=== PATIENT | female | born 1980 | race African-American/Black ===

== ENCOUNTER 2016-04-23 09:30 | Observation (INO) | payer OTHER ==
[~2016-04-23 09:30] MED LIST: PREN1TAB80 PO; PRENATAL
[2016-04-23 09:58] VITALS: BP 105/58
== END 2016-04-23 11:55 | disposition home or self-care (01) ==
LOC: 4S 09:30
PROVIDERS: ADMIT Specialist; ATTEND Specialist
DX: O40.3XX0 Polyhydramnios, third trimester, not applicable or unspecified (principal); O99.013 Anemia complicating pregnancy, third trimester; Z3A.34 34 weeks gestation of pregnancy
CPT/HCPCS: 59025; 76801; 76817; G0378

== ENCOUNTER 2016-05-10 09:45 | Observation (INO) | payer OTHER ==
[~2016-05-10] VITALS: Ht 172.7 cm; Wt 87.1 kg
== END 2016-05-10 11:05 | disposition home or self-care (01) ==
LOC: 4S 09:45
PROVIDERS: ADMIT Obstetrics & Gynecology Gynecology; ATTEND Obstetrics & Gynecology Gynecology
DX: O99.013 Anemia complicating pregnancy, third trimester (principal); Z3A.35 35 weeks gestation of pregnancy
CPT/HCPCS: 59025; G0378

== ENCOUNTER 2016-06-03 13:34 | Inpatient (IN) | payer OTHER ==
[~2016-06-03] VITALS: Ht 175.3 cm; Wt 87.5 kg
[2016-06-03 14:07] VITALS: BP 114/63
[2016-06-03] MEDS ORDERED: RINGERS SOLUTION,LACTATED 1,000 ML IV SCH (14:17)
[2016-06-03] MEDS ORDERED: RINGERS SOLUTION,LACTATED 1,000 ML IV PRN (14:17)
[2016-06-03] MEDS ORDERED: CITRIC ACID/SODIUM CITRATE 30 ML SOLUTION UDCUP PO PRN (14:30)
[2016-06-03] MEDS ORDERED: METOCLOPRAMIDE HCL 5 MG/ML 2 ML VIAL IVP PRN (14:30)
[2016-06-03 14:48] LABS: BASOPHILS % (AUTO) 0.4 % (0.0-2.0); EOSINOPHILS % (AUTO) 0.5 % (1.0-6.0); HEMATOCRIT 32.3 % (36-46); HEMOGLOBIN 10.1 g/dL (12.0-16.0); LYMPHOCYTES # (AUTO) 1.5 K/uL (1.0-4.8); LYMPHOCYTES % (AUTO) 21.2 % (22.0-44.0); MEAN CORPUSCULAR HEMOGLOBIN 23.6 pg (26.0-34.0); MEAN CORPUSCULAR HGB CONC 31.4 G/dL (31.0-37.0); MEAN CORPUSCULAR VOLUME 75 fL (80-100); MONOCYTES % (AUTO) 14.1 % (2.0-9.0); NEUTROPHILS # (AUTO) 4.5 K/uL (1.8-7.7); NEUTROPHILS % (AUTO) 63.8 % (40.0-70.0); RED BLOOD CELL COUNT(AUTO) 4.29 MIL/uL (4.00-5.20); RED CELL DISTRIBUTION WIDTH 22.2 % (11.5-14.5); WHITE BLOOD COUNT (AUTO) 7.1 K/uL (4.5-11.0)
[2016-06-03 15:19] LABS: RBC MORPHOLOGY COMMENT ABNORMAL RBC MORPH
[2016-06-03] MEDS ORDERED: OXYTOCIN 30 UNITS/LACT RINGERS 500 ML IV ONE ×2 (15:27→20:02)
[2016-06-03] MEDS ORDERED: LIDOCAINE HCL/PF 1% 30 ML VIAL INJ PRN (15:30)
[2016-06-03] MEDS ORDERED: ACETAMINOPHEN/CODEINE 300-30 MG TABLET PO PRN (16:15)
[2016-06-03] MEDS ORDERED: MEASLES/MUMPS/RUBELLA VACCINE, LIVE 0.5 ML/VIAL SQ ONE (16:15)
[2016-06-03] MEDS ORDERED: GLYCERIN/WITCH HAZEL LEAF 40 PADS JAR TP PRN (16:15)
[2016-06-03] MEDS ORDERED: BENZOCAINE 20%/MENTHOL 56 GM SPRAY CANISTER TP PRN (16:15)
[2016-06-03] MEDS ORDERED: LANOLIN 7 GM OINTMENT TP PRN (16:15)
[2016-06-03] MEDS: IBUPROFEN 600 MG TABLET PO PRN (16:45)
[2016-06-03] MEDS ORDERED: INFLUENZA VIRUS VACCINE QVS 2016-17 (3YR+)/PF 60 MCG/0.5 ML SYRINGE IM ONE (18:15)
[2016-06-03] MEDS ORDERED: OXYGEN THERAPY IH SCH (20:00)
[2016-06-03] MEDS ORDERED: LIDOCAINE HCL/PF 1% 30 ML VIAL ONE (20:02)
[2016-06-03] MEDS: MAGNESIUM HYDROXIDE SUSPENSION 30 ML UDCUP PO SCH (21:20)
[2016-06-04] MEDS: IBUPROFEN 600 MG TABLET PO PRN ×2 (00:26→13:20)
[2016-06-04] MEDS: ACETAMINOPHEN/CODEINE 300-30 MG TABLET PO PRN ×2 (05:43→18:45)
[2016-06-04] MEDS: MAGNESIUM HYDROXIDE SUSPENSION 30 ML UDCUP PO SCH (14:46)
[2016-06-05] MEDS: IBUPROFEN 600 MG TABLET PO PRN ×2 (02:46→07:55)
[2016-06-05] MEDS: MAGNESIUM HYDROXIDE SUSPENSION 30 ML UDCUP PO SCH ×2 (02:48→11:09)
[2016-06-05] MEDS ORDERED: IBUP-1547 PO (17:19)
[2016-06-05] MEDS ORDERED: DOCU250C91 PO (17:21)
[2016-06-05] MEDS ORDERED: FERR-89 PO (17:22)
== END 2016-06-05 17:35 | disposition home or self-care (01) | DRG 542 ==
LOC: 4S 13:34 → OBSVTOIN 13:34
PROVIDERS: ADMIT Obstetrics & Gynecology Gynecology; ATTEND Obstetrics & Gynecology Gynecology
PROC: 10E0XZZ Delivery of Products of Conception, External Approach (ICD-10-PCS; principal; 2016-06-03)
PROC: 0DQR0ZZ Repair Anal Sphincter, Open Approach (ICD-10-PCS; 2016-06-03)
PROC: 3E0S3CZ (ICD-10-PCS; 2016-06-03)
PROC: 00HU33Z Insertion of Infusion Device into Spinal Canal, Percutaneous Approach (ICD-10-PCS; 2016-06-03)
PROC: 3E0234Z Introduction of Serum, Toxoid and Vaccine into Muscle, Percutaneous Approach (ICD-10-PCS; 2016-06-04)
DX: O77.0 Labor and delivery complicated by meconium in amniotic fluid (principal); O40.3XX0 Polyhydramnios, third trimester, not applicable or unspecified; O70.20 Third degree perineal laceration during delivery, unspecified; O09.523 Supervision of elderly multigravida, third trimester; Z3A.40 40 weeks gestation of pregnancy; Z37.0 Single live birth; Z23 Encounter for immunization
CPT/HCPCS: 86850; 86900; 86901; 90471; J2590; J3490